=== PATIENT | male | born 1955 | race Caucasian/White ===

== ENCOUNTER 2022-05-15 20:42 | Inpatient (IN) | payer OTHER ==
[2022-05-15] VITALS (7 sets, daily range): BP systolic 107–125; BP diastolic 69–88
[~2022-05-15] VITALS: Ht 190.5 cm; Wt 101.2 kg
[2022-05-15] MEDS ORDERED: ASPirin 81 mg TAB PO ONE (21:00)
[2022-05-15] MEDS ORDERED: HEPARIN SODIUM (PORCINE) 5000 UNITS/ML 1ML VIAL ONE (21:00)
[2022-05-15] MEDS ORDERED: HEPARIN 1,000 UNITS/ml 1ML VIAL IV ONE (21:00)
[2022-05-15] MEDS ORDERED: NOREPINEPHRINE 8 MG/250ML KIT 0 ML IV ONE (21:07)
[2022-05-15] MEDS ORDERED: AMIODARONE HCL 150 MG in D5W 5% 100 ML IV ONE (21:15)
[2022-05-15] MEDS ORDERED: ANGIOMAX 250 MG VIAL IV ONE (21:16)
[2022-05-15] MEDS ORDERED: MIDAZOLAM HCL 2MG/2ML 2ml VIAL (1mg/ml) ONE (21:16)
[2022-05-15] MEDS ORDERED: fentaNYL CITRATE 100 MCG/2 ML VL ONE (21:16)
[2022-05-15] MEDS ORDERED: SODIUM CHL 0.9% 50 ML ONE (21:17)
[2022-05-15] MEDS ORDERED: LIDOCAINE 2%HCL (LOCAL ANESTH.) INJ 20ML MDV ONE (21:17)
[2022-05-15 21:18] LABS: Basophils # (auto) 0.1 10 ^3/uL (0-0.2); Basophils % (auto) 1.1 % (0.0-2.0); Eosinophils # (auto) 0.2 10 ^3/uL (0-0.8); Eosinophils % (auto) 2.6 % (0.0-7.0); Hematocrit 42.5 % (41.0-53.0); Hemoglobin 15.1 g/dL (13.5-17.5); Lymphocytes # (auto) 3.1 10 ^3/uL (0.4-5.4); Lymphocytes % (auto) 33.8 % (10.0-50.0); Mean Corpuscular Hemoglobin 32.4 pg (28.0-32.0); Mean Corpuscular Hgb Conc. 35.5 g/dL (32.0-36.0); Mean Corpuscular Volume 91.5 fL (80.0-100.0); Monocytes # (auto) 0.7 10 ^3/uL (0-1.3); Monocytes % (auto) 7.8 % (0.0-12.0); Neutrophils # (auto) 5.1 10 ^3/uL (1.6-8.6); Neutrophils % (auto) 54.7 % (37.0-80.0); Nucleated Red Blood Cells % 0.1 %; Red Blood Cells 4.65 10^6/uL (4.5-5.90); Red Cell Distribution Width 12.8 % (11.8-14.3); White Blood Cell 9.2 10^3/uL (4.4-10.8)
[2022-05-15] MEDS ORDERED: AMIODARONE 450mg/250ml AE 250 ML IV SCH (21:30)
[2022-05-15] MEDS ORDERED: ATROPINE SULF 1 MG/10ml SYR ONE (21:38)
[2022-05-15] MEDS ORDERED: EPINEPHrine HCL 1 MG/10 ML SYRG ONE (21:38)
[2022-05-15] MEDS ORDERED: TICAGRELOR 90 MG TAB ONE (21:50)
[2022-05-15] MEDS ORDERED: ASPirin 325 MG TAB ONE (21:50)
[2022-05-15 21:51] LABS: Albumin 3.7 g/dL (3.4-5.0); BUN/Creatinine Ratio 9.3; Bilirubin, Total 0.8 mg/dL (0.2-1.0); Calcium 8.1 mg/dL (8.5-10.1); Magnesium 2.3 mg/dL (1.6-2.6); Potassium 3.1 mmol/L (3.5-5.1); Total Protein 6.6 g/dL (6.4-8.2)
[2022-05-15] MEDS ORDERED: NITROGLYCERIN 0.4 MG SL TAB SL PRN (22:30)
[2022-05-15] MEDS ORDERED: MORPHINE SULFATE INJ 2 MG/ml SYRG IV PRN (22:30)
[2022-05-15] MEDS ORDERED: POTASSIUM CHL 20 Meq TABLET PO ONE (22:45)
[2022-05-15] MEDS ORDERED: METOPROLOL TARTRATE 1MG/1ML-5ML VIAL IV ONE (22:45)
[2022-05-15] MEDS: SODIUM CHLORIDE 0.9% 1,000 ML IV SCH (23:50)
[2022-05-16] VITALS (65 sets, daily range): BP systolic 97–142; BP diastolic 54–77
[2022-05-16] MEDS ORDERED: AMIODARONE 450mg/250ml AE 250 ML IV SCH (03:30)
[2022-05-16 04:57] LABS: Anion Gap 7 (5-15); Blood Urea Nitrogen 12 mg/dL (7-18); Carbon Dioxide 23 mmol/L (21-32); Chloride 107 mmol/L (98-107); Glucose 115 mg/dL (74-106); Potassium 3.7 mmol/L (3.5-5.1); Sodium 137 mmol/L (136-145)
[2022-05-16 04:58] LABS: Alanine Aminotransferase 60 U/L (16-61); Albumin 3.4 g/dL (3.4-5.0); Aspartate Aminotransferase 216 U/L (15-37); BUN/Creatinine Ratio 13.5; Calcium 8.2 mg/dL (8.5-10.1); GFR African American 110 mL/min; GFR Non-African American 91 mL/min
[2022-05-16 05:00] LABS: Alkaline Phosphatase 63 U/L (45-117); Bilirubin, Total 0.9 mg/dL (0.2-1.0); Phosphorus 2.6 mg/dL (2.5-4.90); Total Protein 6.3 g/dL (6.4-8.2)
[2022-05-16 05:01] LABS: Basophils # (auto) 0 10 ^3/uL (0-0.2); Basophils % (auto) 0.3 % (0.0-2.0); Eosinophils # (auto) 0.1 10 ^3/uL (0-0.8); Eosinophils % (auto) 0.6 % (0.0-7.0); Hematocrit 40.4 % (41.0-53.0); Hemoglobin 14.5 g/dL (13.5-17.5); Lymphocytes # (auto) 1.5 10 ^3/uL (0.4-5.4); Lymphocytes % (auto) 14.6 % (10.0-50.0); Mean Corpuscular Hemoglobin 32.9 pg (28.0-32.0); Mean Corpuscular Hgb Conc. 35.8 g/dL (32.0-36.0); Mean Corpuscular Volume 91.9 fL (80.0-100.0); Monocytes # (auto) 0.6 10 ^3/uL (0-1.3); Monocytes % (auto) 5.3 % (0.0-12.0); Neutrophils # (auto) 8.4 10 ^3/uL (1.6-8.6); Neutrophils % (auto) 79.2 % (37.0-80.0); Red Cell Distribution Width 12.9 % (11.8-14.3); White Blood Cell 10.6 10^3/uL (4.4-10.8)
[2022-05-16] MEDS ORDERED: ACCU-CHEK COMFORT CURVE STRIP VI SCH (06:00)
[2022-05-16] MEDS: TICAGRELOR 90 MG TAB PO SCH ×2 (10:31→21:57)
[2022-05-16] MEDS: ASPirin 81 mg TAB PO SCH (10:31)
[2022-05-16] MEDS ORDERED: METO25TA93 PO (10:34)
[2022-05-16] MEDS ORDERED: LISI2.5T47 PO (10:34)
[2022-05-16] MEDS ORDERED: ATO40T (10:34)
[2022-05-16] MEDS ORDERED: ATOR40TA52 (10:34)
[2022-05-16] MEDS ORDERED: DEXTROSE (50%) 50ML SYRG IV PRN (11:15)
[2022-05-16] MEDS: InsuLIN REG 1unit/0.01ml Soln (100units/ml) SC SCH ×2 (11:30→17:00)
[2022-05-16] MEDS: ACCU-CHEK COMFORT CURVE STRIP VI SCH ×3 (11:43→22:03)
[2022-05-16] MEDS: SODIUM CHLORIDE 0.9% 1,000 ML IV SCH (12:05)
[2022-05-16] MEDS: CARVEDILOL 3.125 MG TAB PO SCH (21:57)
[2022-05-16] MEDS ORDERED: InsuLIN REG 1unit/0.01ml Soln (100units/ml) SC SCH (22:00)
[2022-05-16] MEDS ORDERED: ATORVASTATIN 20 MG TAB PO SCH (22:00)
[2022-05-17] VITALS (19 sets, daily range): BP systolic 94–123; BP diastolic 46–70
[2022-05-17] MEDS: SODIUM CHLORIDE 0.9% 1,000 ML IV SCH (02:44)
[2022-05-17 03:41] LABS: BUN/Creatinine Ratio 12.3; Calcium 8.1 mg/dL (8.5-10.1)
[2022-05-17] MEDS: InsuLIN REG 1unit/0.01ml Soln (100units/ml) SC SCH ×2 (07:00→11:30)
[2022-05-17] MEDS: ACCU-CHEK COMFORT CURVE STRIP VI SCH ×2 (07:28→11:30)
[2022-05-17] MEDS: CARVEDILOL 3.125 MG TAB PO SCH (10:00)
[2022-05-17] MEDS ORDERED: ENALAPRIL MALEATE 2.5 MG TAB PO SCH (10:00)
[2022-05-17] MEDS ORDERED: TICA90TA PO (10:04)
[2022-05-17] MEDS ORDERED: ASPI1TAB20 PO (10:06)
[2022-05-17] MEDS ORDERED: CAR3125T OR (10:06)
[2022-05-17] MEDS ORDERED: ATOR80TA PO (10:06)
[2022-05-17] MEDS: TICAGRELOR 90 MG TAB PO SCH (13:18)
[2022-05-17] MEDS: ASPirin 81 mg TAB PO SCH (13:19)
== END 2022-05-17 14:34 | disposition home or self-care (01) | DRG 246 ==
LOC: EDBD 20:42 → ER 20:46 → CATH 1 21:43 → TELE 22:25 → ICU WEST 23:00 → TELE-WESTW 05-17 09:14
PROVIDERS: ADMIT Internal Medicine; ATTEND Internal Medicine Geriatric Medicine
PROC: 027034Z Dilation of Coronary Artery, One Artery with Drug-eluting Intraluminal Device, Percutaneous Approach (ICD-10-PCS; principal; 2022-05-15)
PROC: 02C03ZZ Extirpation of Matter from Coronary Artery, One Artery, Percutaneous Approach (ICD-10-PCS; 2022-05-15)
PROC: B41F1ZZ Fluoroscopy of Right Lower Extremity Arteries using Low Osmolar Contrast (ICD-10-PCS; 2022-05-15)
PROC: B2131ZZ Fluoroscopy of Multiple Coronary Artery Bypass Grafts using Low Osmolar Contrast (ICD-10-PCS; 2022-05-15)
PROC: B2181ZZ Fluoroscopy of Left Internal Mammary Bypass Graft using Low Osmolar Contrast (ICD-10-PCS; 2022-05-15)
PROC: B2111ZZ Fluoroscopy of Multiple Coronary Arteries using Low Osmolar Contrast (ICD-10-PCS; 2022-05-15)
DX: I21.11 ST elevation (STEMI) myocardial infarction involving right coronary artery (principal); I46.2 Cardiac arrest due to underlying cardiac condition; I49.01 Ventricular fibrillation; E10.9 Type 1 diabetes mellitus without complications; E78.5 Hyperlipidemia, unspecified; I10 Essential (primary) hypertension; I25.10 Atherosclerotic heart disease of native coronary artery without angina pectoris; Z96.41 Presence of insulin pump (external) (internal); I25.2 Old myocardial infarction; Z79.4 Long term (current) use of insulin; Z95.1 Presence of aortocoronary bypass graft; Z20.822 Contact with and (suspected) exposure to COVID-19
CPT/HCPCS: 36415; 71045; 80048; 80053; 80061; 82962; 83735; 83880; 84100; 84484; 85025; 87081; 87426; 92933; 93005; 93306; 93455; 96365; 96375; 99152; 99153; 99291; C1887; G0378; J2250; J7060